=== PATIENT | female | born 1980 | race Caucasian/White ===

== ENCOUNTER 2017-03-18 13:45 | Outpatient (CLI) | payer SELFPAY | END 2017-03-18 13:46 | disposition EMS.NT | LOC: EMS 13:45 | PROVIDERS: ATTEND Surgery | DX: R00.0 Tachycardia, unspecified (principal) ==

== ENCOUNTER 2018-09-02 16:40 | Outpatient (CLI) | payer SELFPAY | END 2018-09-02 16:41 | disposition EMS.NT | LOC: EMS 16:40 | PROVIDERS: ATTEND Surgery | DX: R00.0 Tachycardia, unspecified (principal) ==

== ENCOUNTER 2018-12-11 18:18 | Outpatient (CLI) | payer SELFPAY | END 2018-12-11 18:19 | disposition EMS.NT | LOC: EMS 18:18 | PROVIDERS: ATTEND Surgery | DX: R55 Syncope and collapse (principal) ==

== ENCOUNTER 2022-05-25 08:00 | Outpatient (CLI) | payer OTHER ==
--- NOTE | 2022-05-25 16:37 | XRAY Report ---
PROCEDURE: Chest 2 View X-Ray INDICATIONS: SHORTNESS OF BREATH TECHNIQUE: 2 views COMPARISON: None FINDINGS: The lungs are clear, heart and mediastinum appear normal. IMPRESSION: Source of shortness of breath is not found. Normal for age. Reviewed by: Bonifacio Herrera MD on 05/25/2022 4:35 PM PDT Approved by: Bonifacio Herrera MD on 05/25/2022 4:35 PM PDT Station ID: [id number]
== END 2022-05-25 23:59 | disposition home or self-care (01) ==
LOC: DI.S 08:00
PROVIDERS: ATTEND Physician Assistant
DX: R06.02 Shortness of breath (principal)

== ENCOUNTER 2022-07-13 07:00 | Outpatient (CLI) | payer OTHER | END 2022-07-13 23:59 | disposition home or self-care (01) | LOC: LAB.S 07:00 | PROVIDERS: ATTEND Registered Nurse | DX: J02.9 Acute pharyngitis, unspecified (principal) | CPT/HCPCS: 87070 ==